=== PATIENT | female | born 1995 | race Caucasian/White ===

== ENCOUNTER 2017-05-28 09:50 | Emergency (ER) | payer OTHER ==
[2017-05-28 10:01] VITALS: BP 114/77; RESP 18; TEMP 99.1
--- NOTE | 2017-05-28 10:25 | EDPHY ---
H & P Smoking Status: Never smoked Time Seen by Provider: 05/28/17 10:11 HPI/ROS: CHIEF COMPLAINT: Sore throat, nasal congestion, cough HISTORY OF PRESENT ILLNESS: 21-year-old female presents to the emergency department with nasal congestion and cough. She started with a sore throat 5 days ago which has now mostly resolved. She states that she still has a mild sore throat with coughing. She now has some nasal congestion and cough. She states that the cough is keeping her up at night. It is not productive in nature. She has not tried any cough suppressant. No fevers or chills. No chest pain or difficulty breathing. She does not get flu shots. No history of bronchitis, asthma, or pneumonia. No ill contacts. No recent travel. REVIEW OF SYSTEMS: Constitutional: No fever, no chills. Eyes: No double or blurry vision. ENT: Sore throat now resolved Respiratory: Cough. No shortness of breath Cardiac: No chest pain. Gastrointestinal: No abdominal pain, vomiting or diarrhea. Genitourinary: No dysuria. Musculoskeletal: No neck or back pain. Skin: No rashes. Neurological: No headache. (Harriett Martinez) Past Medical/Surgical History: Healthy (Harriett Martinez) Social History: [employer] student (Harriett Martinez) Physical Exam: General Appearance: Alert, no distress. 37.3, 95% on room air. No respiratory distress. Eyes: Pupils equal and round. Extraocular motions are all intact. Mild erythema noted to the right eye with dried purulent drainage noted. Left eye is clear. ENT: Mouth: Mucous membranes moist. No posterior pharyngeal injection or exudate noted. Respiratory: No wheezing, rhonchi, or rales, lungs are clear to auscultation. Cardiovascular: Regular rate and rhythm. Gastrointestinal: Abdomen is soft and nontender, no masses, no rebound or guarding, bowel sounds normal. Neurological: Alert and oriented x 3, cranial nerves II through XII grossly intact Skin: Warm and dry, no rashes. Musculoskeletal: Nontender to palpate along the cervical, thoracic or lumbar spine. Neck is supple. Extremities: Full range of motion and no peripheral edema. Psychiatric: Patient is oriented X 3, there is no agitation. (Harriett Martinez) Constitutional: Initial Vital Signs Temperature (C) 37.3 C 05/28/17 09:55 Heart Rate 87 05/28/17 09:55 Respiratory Rate 18 05/28/17 09:55 Blood Pressure 114/77 05/28/17 09:55 O2 Sat (%) 95 05/28/17 09:55 O2 Delivery Mode Room Air Allergies/Adverse Reactions: No Known Allergies Allergy (Unverified 05/28/17 10:01) Home Medications: Medication Instructions Recorded Control Pill 05/28/17 Ofloxacin 0.3% [Ocuflox] 1 - 2 drops EACHEYE QID 7 Days btl 05/28/17 Medical Decision Making ED Course/Re-evaluation: 21-year-old female presents to the emergency department with upper respiratory infection symptoms. She has normal examination. She is afebrile. Clinically I think this patient likely has influenza. The patient has been sick however for 5 days. I do not think testing for influenza or treating with Tamiflu is indicated. She has no history of bronchitis or pneumonia. No history of asthma. She is in no respiratory distress. O2 saturation was 96-97% on room air. I do not think antibiotics are indicated. I did encourage her to take [id number] long-acting dextromethorphan to help suppress her cough only at nighttime to help her sleep. Otherwise symptomatic supportive care. She was instructed to return to the emergency department if she felt short of breath , if he developed fever, or if she felt worse in any way. She was comfortable with this plan. She was also given a note to be out of [facility] for the next week. Patient also has conjunctivitis. She will be treated with Ocuflox. She was discouraged from wearing her contacts until her symptoms have resolved, 1 week. (Harriett Martinez) I did not see this patient while she was in the emergency department. However her care was discussed with the PA while the patient was in the department. I agree with treatment plan and management (Valentin Ellis) Differential Diagnosis: Including but not limited to viral upper respiratory infection, influenza, bronchitis, pneumonia (Harriett Martinez) Departure - Departure Disposition: Home, Routine, Self-Care Clinical Impression: Viral upper respiratory infection Conjunctivitis, right eye Qualifiers: Conjunctivitis type: acute Acute conjunctivitis type: bacterial Qualified Code( s): H10.31 - Unspecified acute conjunctivitis, right eye Condition: Good Instructions: Upper Respiratory Infection (ED), Conjunctivitis (ED) Additional Instructions: Ocuflox drops 1-2 drops 4 times daily to both eyes for 1 week. Do not wear contacts for at least 1 week in your infection has resolved. Delsym, dextromethorphan, long-acting cough suppressant to help you suppress her cough to help you sleep at night only. Return to the emergency department if you develop shortness of breath, increasing pain, or if you feel worse in any way. Referrals: Lainey Saleh MD [Non Staff Provider (MD)] - 2-3 days, if not improved ( Broadband Technician on-call) Prescriptions: Ofloxacin 0.3% [Ocuflox] 1 - 2 drops EACHEYE QID 7 Days btl
[2017-05-28 10:37] VITALS: PULSE 91; O2SAT 95
== END 2017-05-28 10:37 | disposition home or self-care (01) ==
DX: J06.9 Acute upper respiratory infection, unspecified (principal); H10.31 Unspecified acute conjunctivitis, right eye